=== PATIENT | male | born 1985 | race Two or more races ===

== ENCOUNTER 2022-11-03 23:11 | Emergency (ER) | payer MEDICAID ==
[~2022-11-03] VITALS: Ht 180.3 cm; Wt 70.3 kg
[2022-11-03 23:20] VITALS: BP 129/92
--- NOTE | 2022-11-03 23:55 | NUR ---
[facility] AND [employer] FROM HOME TO ER BED 15. BROUGHT IN FOR YELLING AND SCREAMING AT OTHER AND BEING PARANOID. PT ADMMITS TO SMOKE "DAB" WHICH IS CONCENTRATED CANNABIS. PT DENIES AND THOUGHTS OF HARMIMG HIMSELF NOR OTHERS. PT IS COOPERATIVE AND CALM.
--- NOTE | 2022-11-04 00:15 | NUR ---
pt's brother picked up the patient. ambulatory on steady gait.
== END 2022-11-04 00:38 | disposition home or self-care (01) ==
LOC: ER 23:13
DX: F12.10 Cannabis abuse, uncomplicated (principal)